=== PATIENT | female | born 1990 | race Caucasian/White ===

== ENCOUNTER 2016-02-27 08:43 | Emergency (ER) | payer MEDICAID, OTHER ==
[~2016-02-27] VITALS: Ht 154.9 cm; Wt 50.0 kg
[~2016-02-27 08:43] MED LIST: AUGM875T PO; TYLE3 PO
[2016-02-27 08:57] VITALS: BP 91/56; PULSE 100; RESP 20; TEMP 98.6; O2SAT 98
[2016-02-27 11:17] VITALS: BP 90/53; PULSE 83; RESP 16; O2SAT 95
--- NOTE | 2016-02-27 11:26 | PD ---
HPI Chief Complaint: Cold / Flu Symptoms Time Seen by Provider: 11:10 Travel History International Travel<30 days: No Contact w/Intl Traveler<30days: No Traveled to known affect area: No History of Present Illness HPI The patient was seen and examined in the presence of the nurse. She's had some nausea vomiting diarrhea for 3 days. Those symptoms have improved. She is not had any vomiting today. She has generalized weakness and malaise. Her chief complaint is sore throat. No documented fever. No alleviating factors. Symptoms severity is moderate PFSH Past Medical History Asthma: Yes Diminished Hearing: No Immunizations Current: No ?: Not : 4 Para: 4 Tubal Ligation: Yes Social History Alcohol Use: Yes (OCC) Tobacco Use: No Substance Use: No Allergies-Medications (Allergen,Severity, Reaction): Coded Allergies: No Known Allergies (Verified , 12/13/15) Reported Meds & Prescriptions Reported Meds & Active Scripts Active No Active Prescriptions or Reported Medications Review of Systems General / Constitutional: No: Fever Eyes: No: Visual changes HENT: Positive: Sore Throat, No: Headaches Cardiovascular: No: Chest Pain or Discomfort Respiratory: No: Shortness of Breath Gastrointestinal: Positive: Nausea, Vomiting, Diarrhea, No: Abdominal Pain Genitourinary: No: Dysuria Musculoskeletal: Positive: Weakness, No: Pain Skin: No Rash Neurologic: Positive: Weakness Psychiatric: No: Depression Endocrine: No: Polydipsia Hematologic/Lymphatic: No: Easy Bruising Physical Exam Narrative GENERAL: Well-nourished, well-developed patient in no apparent distress. SKIN: Warm and dry. HEAD: Atraumatic. Normocephalic. EYES: Pupils equal and round. No scleral icterus. No injection or drainage. ENT: No nasal bleeding or discharge. Mucous membranes pink and moist. Throat shows erythema without exudate, uvula midline without swelling NECK: Trachea midline. No JVD. No meningeal signs CARDIOVASCULAR: Regular rate and rhythm. No murmur appreciated. RESPIRATORY: No accessory muscle use. Clear to auscultation. Breath sounds equal bilaterally. GASTROINTESTINAL: Abdomen soft, non-tender, nondistended. Hepatic and splenic margins not palpable. MUSCULOSKELETAL: No obvious deformities. No clubbing. No cyanosis. No edema. NEUROLOGICAL: Awake and alert. No obvious cranial nerve deficits. Motor grossly within normal limits. Normal speech. PSYCHIATRIC: Appropriate mood and affect; insight and judgment normal. Data Data Last Documented VS Vital Signs Date Time Temp Pulse Resp B/P Pulse Ox O2 Delivery O2 Flow Rate FiO2 02/27/16 13:39 78 15 96/57 96 Room Air 02/27/16 08:57 98.6 Orders Iv Access Insert/Monitor (02/27/16 11:20) Complete Blood Count With Diff (02/27/16 11:20) Basic Metabolic Panel (Bmp) (02/27/16 11:20) Beta Hcg (Quant/Titer) (02/27/16 11:20) Sodium Chlor 0.9% 1000 Ml Inj (Ns 1000 M (02/27/16 11:30) Group A Rapid Strep Screen (02/27/16 11:20) Labs Laboratory Tests Test 02/27/16 11:20 White Blood Count 13.7 TH/MM3 Red Blood Count 4.03 MIL/MM3 Hemoglobin 11.0 GM/DL Hematocrit 33.5 % Mean Corpuscular Volume 83.0 FL Mean Corpuscular Hemoglobin 27.4 PG Mean Corpuscular Hemoglobin 32.9 % Concent Red Cell Distribution Width 14.3 % Platelet Count 239 TH/MM3 Mean Platelet Volume 7.7 FL Neutrophils (%) (Auto) 86.2 % Lymphocytes (%) (Auto) 7.3 % Monocytes (%) (Auto) 6.4 % Eosinophils (%) (Auto) 0.0 % Basophils (%) (Auto) 0.1 % Neutrophils # (Auto) 11.8 TH/MM3 Lymphocytes # (Auto) 1.0 TH/MM3 Monocytes # (Auto) 0.9 TH/MM3 Eosinophils # (Auto) 0.0 TH/MM3 Basophils # (Auto) 0.0 TH/MM3 CBC Comment DIFF FINAL Differential Comment Sodium Level 139 MEQ/L Potassium Level 3.5 MEQ/L Chloride Level 106 MEQ/L Carbon Dioxide Level 27.1 MEQ/L Anion Gap 6 MEQ/L Blood Urea Nitrogen 5 MG/DL Creatinine 0.71 MG/DL Estimat Glomerular Filtration 100 ML/MIN Rate Random Glucose 88 MG/DL Calcium Level 8.4 MG/DL Human Chorionic Gonadotropin, LESS THAN 1 Quant MIU/ML MDM Medical Decision Making Medical Screen Exam Complete: Yes Emergency Medical Condition: Yes Medical Record Reviewed: Yes Differential Diagnosis Dehydration, gastroenteritis, pharyngitis Narrative Course I have reviewed the patient's electronic medical record. Patient does not look septic or toxic but does have a blood pressure of 90/50. She is a young thin female so this may be baseline I reviewed her prior vital signs from prior visits and her blood pressures have run anywhere from low 90s up to 108 systolic IV placed I gave her 1 L normal saline IV CBC is normal Metabolic profile is normal Beta hCG is negative Rapid strep screen is positive Patient has strep pharyngitis she has a low baseline blood pressure but I've given her liter of saline and she is well-hydrated at this time Penicillin VK prescribed Diagnosis Primary Impression: Pharyngitis due to group A beta hemolytic Streptococci Additional Impression: Vomiting and diarrhea Additional Instructions: The patient was advised to follow up with their physician and return if they worsen. Med/Other Pt SpecificInfo: Prescription(s) given Scripts Penicillin V Potassium 500 Mg [id number] Mg PO Q6H #28 TAB Ref 0 Prov:Gumaro Ramírez MD 02/27/16 Disposition: 01 DISCHARGE HOME Condition: Stable Gumaro Ramírez MD Feb 27, 2016 11:26
[2016-02-27] MEDS ORDERED: SODIUM CHLOR 0.9% 1000 ML INJ 1,000 ML IV ONE (11:30)
[2016-02-27 11:36] LABS: AUTOMATED NEUTROPHIL # 11.8 TH/MM3 (1.8-7.7); BASOPHIL % 0.1 % (0.0-2.0); HEMATOCRIT 33.5 % (35.0-46.0); HEMO FLAGS DIFF FINAL; LYMPH % 7.3 % (9.0-44.0); MEAN CORPUSCULAR HEMOGLOBIN 27.4 PG (27.0-34.0); MEAN CORPUSCULAR HGB CONC 32.9 % (32.0-36.0); MONO % 6.4 % (0.0-8.0); NEUT % 86.2 % (16.0-70.0); PLATELET COUNT 239 TH/MM3 (150-450); RED BLOOD COUNT 4.03 MIL/MM3 (4.00-5.30); RED CELL DISTRIBUTION WIDTH 14.3 % (11.6-17.2); WHITE BLOOD COUNT 13.7 TH/MM3 (4.0-11.0)
[2016-02-27 11:50] LABS: ANION GAP 6 MEQ/L (5-15); BICARBONATE 27.1 MEQ/L (21.0-32.0); BLOOD UREA NITROGEN 5 MG/DL (7-18); CHLORIDE 106 MEQ/L (98-107); GLOMERULAR FILTRATION RATE 100 ML/MIN (>89); POTASSIUM 3.5 MEQ/L (3.5-5.1); SODIUM (NA) 139 MEQ/L (136-145)
[2016-02-27 11:54] LABS: BETA HCG QUANT LESS THAN 1 MIU/ML (0-5)
[2016-02-27 13:39] VITALS: BP 96/57; PULSE 78; RESP 15; O2SAT 96
[2016-02-27] MEDS ORDERED: PENI500T PO (13:48)
== END 2016-02-27 14:11 | disposition home or self-care (01) ==
LOC: NEPC 08:43
DX: J02.0 Streptococcal pharyngitis (principal); B95.0 Streptococcus, group A, as the cause of diseases classified elsewhere; R11.2 Nausea with vomiting, unspecified; R19.7 Diarrhea, unspecified
CPT/HCPCS: 80048; 84702; 85025; 87880; 96360; 99284; J7030

== ENCOUNTER 2016-06-23 13:41 | Emergency (ER) | payer MEDICAID ==
[~2016-06-23] VITALS: Ht 157.5 cm; Wt 49.3 kg
[~2016-06-23 13:41] MED LIST changes: -AUGM875T PO; +PENI500T PO; -TYLE3 PO
[2016-06-23 13:50] VITALS: BP 104/47; PULSE 89; RESP 15; TEMP 98.6; O2SAT 98
[2016-06-23] MEDS ORDERED: DICL75TA PO (15:11)
[2016-06-23] MEDS ORDERED: MAGICADU2 SWISH-SWAL (15:11)
[2016-06-23] MEDS ORDERED: PENI250T59 PO (15:11)
--- NOTE | 2016-06-23 15:15 | PD ---
HPI Chief Complaint: Oral / Dental Pain or Problem Time Seen by Provider: 15:12 Travel History International Travel<30 days: No Contact w/Intl Traveler<30days: No Traveled to known affect area: No History of Present Illness HPI 26-year-old female that presents to the ED for evaluation of right-sided jaw swelling and pain. Per patient she's had this for a couple days. Per patient the swelling started today. Per patient she does have bad dentition. She denies any fevers chills or sweats. Per patient the pain 6 out of 10. Denies any other symptom. She has not seen a dentist for this. No significant anybody for this. No allergies to medication. PFSH Past Medical History Medical History: Denies Significant Hx Asthma: Yes Diminished Hearing: No Immunizations Current: Yes Tetanus Vaccination: > 5 Years Influenza Vaccination: No ?: Not LMP: 3 WEEKS. : 4 Para: 4 Tubal Ligation: Yes Social History Alcohol Use: Yes (OCC) Tobacco Use: No Substance Use: No Allergies-Medications (Allergen,Severity, Reaction): Coded Allergies: No Known Allergies (Verified , 06/23/16) Reported Meds & Prescriptions Reported Meds & Active Scripts Active Magic Mouthwash Adult Liq (Multi-Ingredient Mouthwash/Gargle) 120 Ml Susp 5 Ml SWISH-SWAL ACHS Each 5 mL contains: Nystatin 200,000 units, Diphenhydramine 4.25 mg, Viscous Lidocaine 10 mg, Gilliam syrup 0.[address] (Diclofenac Sodium) 75 Mg Tabdr 75 Mg PO BID PRN Penicillin Vk (Penicillin V Potassium) 250 Mg Tab 250 Mg PO Q6H 14 Days Review of Systems Except as stated in HPI: all other systems reviewed are Neg Physical Exam Narrative GENERAL: SKIN: Warm and dry. HEAD: Atraumatic. Normocephalic. EYES: Pupils equal and round. No scleral icterus. No injection or drainage. ENT: No nasal bleeding or discharge. Mucous membranes pink and moist. Tongue is midline. No blood deviation. Dental: Patient has bad dentition not especially on the right upper and right lower jaw. Patient does have some soft tissue swelling noted on the gum of the right tooth #5 which does have a cavity in it. Tenderness to palpation in this area. Soft tissue swelling on the right cheek. NECK: Trachea midline. No JVD. CARDIOVASCULAR: Regular rate and rhythm. RESPIRATORY: No accessory muscle use. Clear to auscultation. Breath sounds equal bilaterally. GASTROINTESTINAL: Abdomen soft, non-tender, nondistended. Hepatic and splenic margins not palpable. MUSCULOSKELETAL: Extremities without clubbing, cyanosis, or edema. No obvious deformities. NEUROLOGICAL: Awake and alert. No obvious cranial nerve deficits. Motor grossly within normal limits. Five out of 5 muscle strength in the arms and legs. Normal speech. PSYCHIATRIC: Appropriate mood and affect; insight and judgment normal. Data Data Last Documented VS Vital Signs Date Time Temp Pulse Resp B/P Pulse Ox O2 Delivery O2 Flow Rate FiO2 06/23/16 13:50 98.6 89 15 104/47 98 MDM Medical Decision Making Medical Screen Exam Complete: Yes Emergency Medical Condition: Yes Medical Record Reviewed: Yes Differential Diagnosis Dental infection versus dentalgia versus dental abscess Narrative Course 26-year-old female that presents to the ED for evaluation of right-sided swelling. Patient was properly examined and was found to have signs and symptoms consistent with dental infection. Patient will be treated for this with penicillin VK, diclofenac sodium, Magic mouthwash. Told to apply ice or warm compresses. Given dental referral. See ED if worsening symptoms. Diagnosis Primary Impression: Dental infection Patient Instructions: General Instructions Additional Instructions: Take medications as prescribed. Follow-up with dentist See ED for any worsening symptoms. Apply ice t as needed for pain Med/Other Pt SpecificInfo: Prescription(s) given Scripts Yvbewbni-Ybpimzwwsdiaaaq-Njlyirlgb Liq (Magic Mouthwash Adult Liq)120 Ml Susp5 Ml SWISH-SWAL ACHS #120 ML Each 5 mL contains: Nystatin 200,000 units, Diphenhydramine 4.25 mg, Viscous Lidocaine 10 mg, Gilliam syrup 0.8 mL Prov:Suleiman Sweeney MD 06/23/[address] 75 Mg Tabdr75 Mg PO BID PRN (PAIN SCALE 1 TO 10) #20 TAB Prov:Suleiman Sweeney MD 06/23/16 Penicillin V Potassium (Penicillin Vk)250 Mg [id number] Mg PO Q6H 14 Days Prov:Suleiman Sweeney MD 06/23/16 Disposition: 01 DISCHARGE HOME Condition: Stable Kirill Kilpatrick Jun 23, 2016 15:15
== END 2016-06-23 15:33 | disposition home or self-care (01) ==
LOC: PHED 13:41 → PHEFT 15:33
DX: K04.7 Periapical abscess without sinus (principal); K02.9 Dental caries, unspecified
CPT/HCPCS: 99282

== ENCOUNTER 2016-12-04 17:09 | Emergency (ER) | payer MEDICAID ==
[~2016-12-04] VITALS: Ht 154.9 cm; Wt 50.0 kg
[~2016-12-04 17:09] MED LIST changes: +DICL75TA PO; +MAGICADU2 SWISH-SWAL; +PENI250T59 PO; -PENI500T PO
[2016-12-04 17:31] VITALS: BP 90/53; PULSE 86; RESP 16; TEMP 98; O2SAT 97
[2016-12-04 17:52] LABS: AUTOMATED NEUTROPHIL # 5.5 TH/MM3 (1.8-7.7); BASOPHIL % 0.3 % (0.0-2.0); EOSINOPHIL # 0.1 TH/MM3 (0-0.4); EOSINOPHIL % 1.2 % (0.0-4.0); HEMO FLAGS DIFF FINAL; LYMPH % 18.7 % (9.0-44.0); LYMPHOCYTE # 1.4 TH/MM3 (1.0-4.8); MEAN CELL VOLUME 86.2 FL (80.0-100.0); MEAN CORPUSCULAR HEMOGLOBIN 28.1 PG (27.0-34.0); MEAN CORPUSCULAR HGB CONC 32.6 % (32.0-36.0); MONO % 6.9 % (0.0-8.0); NEUT % 72.9 % (16.0-70.0); PLATELET COUNT 256 TH/MM3 (150-450); RED BLOOD COUNT 3.94 MIL/MM3 (4.00-5.30); RED CELL DISTRIBUTION WIDTH 14.1 % (11.6-17.2); WHITE BLOOD COUNT 7.6 TH/MM3 (4.0-11.0)
[2016-12-04 18:09] LABS: ANION GAP 7 MEQ/L (5-15); AST (GOT) 16 U/L (15-37); BLOOD UREA NITROGEN 8 MG/DL (7-18); CHLORIDE 105 MEQ/L (98-107); GLOMERULAR FILTRATION RATE 126 ML/MIN (>89); POTASSIUM 3.6 MEQ/L (3.5-5.1); SODIUM (NA) 138 MEQ/L (136-145)
[2016-12-04 18:14] LABS: ALKALINE PHOSPHATASE 94 U/L (45-117); ALT (GPT) 21 U/L (10-53); TOTAL BILIRUBIN ADULT 0.3 MG/DL (0.2-1.0)
[2016-12-04 18:37] LABS: BLOOD, URINE NEG (NEG); COMMENT (UR) CULT NOT INDICATED; CULTURE IF INDICATED CULT NOT INDICATED; GLUCOSE,URINE NEG (NEG); KETONE, URINE NEG (NEG); MUCUS URINE FEW /lpf (OCC); NITRITE,URINE NEG (NEG); SQUAMOUS EPITHELIAL CELL URINE 16 /hpf (0-5); URINE COLOR YELLOW (YELLW/STRAW)
[2016-12-04 18:54] VITALS: BP 92/53; PULSE 57; RESP 14; O2SAT 100
--- NOTE | 2016-12-04 19:17 | PD ---
HPI Chief Complaint: Abdominal Pain Time Seen by Provider: 19:12 Travel History International Travel<30 days: No Contact w/Intl Traveler<30days: No Traveled to known affect area: No History of Present Illness HPI 26-year-old female presents to the ED for evaluation of 4 hour history of sudden onset 8/10 lower abdominal pain. Described as "so bad and couldn't move. " Reported as 3/10 on my evaluation. She endorses accompanying nausea with one episode of NBNB vomiting. Patient endorses "normal" bowel movement this morning. Denies melena or hematochezia. She endorses right-sided back pain. No alleviating or exacerbating factors reported. She denies dysuria, risk of . She states her last menstrual period was "the end of last month." She endorses pale vaginal discharge but states this is her normal. No treatment attempt at home. PFSH Past Medical History Asthma: Yes Diminished Hearing: No Immunizations Current: Yes Tetanus Vaccination: < 5 Years ?: Not : 4 Para: 4 Tubal Ligation: Yes Social History Alcohol Use: Yes (OCC) Tobacco Use: No Substance Use: No Allergies-Medications (Allergen,Severity, Reaction): Coded Allergies: No Known Allergies (Verified , 12/04/16) Reported Meds & Prescriptions Reported Meds & Active Scripts Active No Active Prescriptions or Reported Medications Review of Systems Except as stated in HPI: all other systems reviewed are Neg Physical Exam Narrative GENERAL: Well-nourished, well-developed petite white female in no acute distress. SKIN: Focused skin assessment warm/dry. HEAD: Normocephalic. EYES: No scleral icterus. No injection or drainage. NECK: Supple, trachea midline. No JVD or lymphadenopathy. CARDIOVASCULAR: Regular rate and rhythm without murmurs, gallops, or rubs. RESPIRATORY: Breath sounds clear and equal bilaterally. No accessory muscle use. GASTROINTESTINAL: Abdomen soft, non-tender, nondistended. No suprapubic tenderness. No palpable masses. Active bowel sounds. GENITOURINARY: Normal external genitalia without lesions or erythema. Vaginal vault copious creamy white drainage. Cervical os was closed copious creamy white drainage. No cervical motion tenderness. Uterus nontender and nonenlarged. Bilateral adnexa nontender without masses. MUSCULOSKELETAL: No cyanosis, or edema. BACK: Nontender without obvious deformity. + Right sided CVA tenderness. Data Data Last Documented VS Vital Signs Date Time Temp Pulse Resp B/P (MAP) Pulse Ox O2 Delivery O2 Flow Rate FiO2 12/04/16 18:54 57 14 92/53 (66) 100 Room Air 12/04/16 17:31 98.0 Orders Orders Complete Blood Count With Diff (12/04/16 17:35) Comprehensive Metabolic Panel (12/04/16 17:35) Urinalysis - C+S If Indicated (12/04/16 17:35) Ed Urine Pregnancytest Poc (12/04/16 17:35) Iv Access Insert/Monitor (12/04/16 17:35) Lipase (12/04/16 17:35) Wet Prep Profile (12/04/16 19:13) Gc And Chlamydia Pcr (12/04/16 19:13) Azithromycin Powd Pack (Zithromax Powd P (12/04/16 20:00) Ceftriaxone Inj (Rocephin Inj) (12/04/16 20:00) Lidocaine 1% Inj (50 Ml) (Xylocaine 1% I (12/04/16 20:00) Us Pelvis Comp W Doppler (12/04/16 ) Ed Discharge Order (12/04/16 22:32) Labs Laboratory Tests Test 12/04/16 17:30 12/04/16 18:00 12/04/16 20:00 White Blood Count 7.6 TH/MM3 Red Blood Count 3.94 MIL/MM3 Hemoglobin 11.1 GM/DL Hematocrit 34.0 % Mean Corpuscular Volume 86.2 FL Mean Corpuscular Hemoglobin 28.1 PG Mean Corpuscular Hemoglobin Concent 32.6 % Red Cell Distribution Width 14.1 % Platelet Count 256 TH/MM3 Mean Platelet Volume 7.5 FL Neutrophils (%) (Auto) 72.9 % Lymphocytes (%) (Auto) 18.7 % Monocytes (%) (Auto) 6.9 % Eosinophils (%) (Auto) 1.2 % Basophils (%) (Auto) 0.3 % Neutrophils # (Auto) 5.5 TH/MM3 Lymphocytes # (Auto) 1.4 TH/MM3 Monocytes # (Auto) 0.5 TH/MM3 Eosinophils # (Auto) 0.1 TH/MM3 Basophils # (Auto) 0.0 TH/MM3 CBC Comment DIFF FINAL Differential Comment Blood Urea Nitrogen 8 MG/DL Creatinine 0.58 MG/DL Random Glucose 84 MG/DL Total Protein 7.7 GM/DL Albumin 3.7 GM/DL Calcium Level 8.3 MG/DL Alkaline Phosphatase 94 U/L Aspartate Amino Transf (AST/SGOT) 16 U/L Alanine Aminotransferase (ALT/SGPT) 21 U/L Total Bilirubin 0.3 MG/DL Sodium Level 138 MEQ/L Potassium Level 3.6 MEQ/L Chloride Level 105 MEQ/L Carbon Dioxide Level 26.0 MEQ/L Anion Gap 7 MEQ/L Estimat Glomerular Filtration Rate 126 ML/MIN Lipase 248 U/L Urine Color YELLOW Urine Turbidity HAZY Urine pH 8.0 Urine Specific [place] 1.020 Urine Protein TRACE mg/dL Urine Glucose (UA) NEG mg/dL Urine Ketones NEG mg/dL Urine Occult Blood NEG Urine Nitrite NEG Urine Bilirubin NEG Urine Urobilinogen LESS THAN 2.0 MG/DL Urine Leukocyte Esterase SMALL Urine RBC 1 /hpf Urine WBC 4 /hpf Urine Squamous Epithelial Cells 16 /hpf Urine Amorphous Sediment RARE Urine Mucus FEW /lpf Microscopic Urinalysis Comment CULT NOT INDICATED Clue Cells (Wet Prep) NONE SEEN Vaginal Trichomonas (Wet Prep) NONE SEEN Vaginal Yeast (Wet Prep) NONE SEEN MDM Medical Decision Making Medical Screen Exam Complete: Yes Emergency Medical Condition: Yes Differential Diagnosis versus cystitis versus pyelonephritis versus STI versus ovarian torsion versus ovarian cyst versus other Narrative Course 26-year-old female presents to the ED via EMS for evaluation of 4 hour history of sudden onset 8/10 lower abdominal pain. Described as "so bad she couldn't move." Reported as 3/10 on my evaluation. She endorses accompanying nausea with one episode of NBNB vomiting. Patient endorses "normal" bowel movement this morning. Denies melena or hematochezia. She endorses right-sided back pain. No alleviating or exacerbating factors reported. She denies dysuria, risk of . She states her last menstrual period was "the end of last month." She endorses pale vaginal discharge. She endorses unprotected sex. Vitals reviewed. Physical exam reveals a well-appearing white female in no acute distress. Chest CTAB. Abdomen soft, nontender. No suprapubic tenderness. Positive right-sided CVA tenderness. Pelvic exam reveals thick white discharge in the vaginal vault and emanating from the cervical os. No cervical motion or adnexal tenderness. Patient agrees to empiric treatment for GC and chlamydia. ED urine test negative. No concerning abnormalities on CBC, CMP, UA. Wet prep negative. GC, chlamydia pending. Pelvic US reveals right ovarian cyst. Patient is instructed to return to normal , gentle activities as tolerated, follow-up with her planisher. She was made aware of the pending GC and chlamydia results. She indicated understanding of the discharge instructions. She is stable and discharged home. Diagnosis Primary Impression: Lower abdominal pain Additional Impressions: Vaginal discharge Ovarian cyst Qualified Codes: N83.201 - Unspecified ovarian cyst, right side Referrals: Psychosocial Rehabilitation Counselor Patient Instructions: General Instructions, Ovarian Cyst (ED), Vaginal Discharge (ED) Additional Instructions: Rest, hydrate. Return to normal, to collect these as tolerated. The gonorrhea and chlamydia testing result will not be back for 2 days. You can expect a letter or phone call if you test is positive. Abstain from sex until the results are called back. You need to have a test of cure at the health department before resuming sexual activity. Barrier methods are best! Use a condom with all sexual partners. Follow-up with a planisher or the [facility]. Return to ED for any urgent or emergent medical condition. Scripts No Active Prescriptions or Reported Meds Disposition: 01 DISCHARGE HOME Condition: Beulah King Dec 04, 2016 19:17
[2016-12-04] MEDS ORDERED: AZITHROMYCIN PWD FOR SUSP 1 GM PACKET PO ONE (20:00)
[2016-12-04] MEDS ORDERED: cefTRIAXone 250 MG VIAL IM ONE (20:00)
[2016-12-04] MEDS ORDERED: LIDOCAINE HCL 1% 50 ML VIAL IM ONE (20:00)
--- NOTE | 2016-12-04 22:27 | RADRPT ---
EXAM DATE/TIME: 12/04/2016 21:58 [facility] COMPARISON: No previous studies available for comparison. INDICATIONS : Pelvic pain. MEDICAL HISTORY : Asthma. SURGICAL HISTORY : Tubal ligation. ENCOUNTER: Initial ACUITY: 2 days PAIN SCORE: 6/10 LOCATION: Bilateral pelvis MEASUREMENTS: UTERUS: 10.7 x 5.8 x 4.3 cm ENDOMETRIAL STRIPE: 12 mm RIGHT OVARY: 3.7 x 2.0 x 1.9 cm LEFT OVARY: 2.8 x 2.3 x 1.6 cm FINDINGS: UTERUS: The myometrium has homogeneous echotexture without mass.The endometrial cavity is empty. RIGHT OVARY: There is a cyst associated with the right ovary measuring 2.5 cm. There is flow to the right ovary. LEFT OVARY: Ovary contains no mass or significant cystic lesion. There is flow to the left ovary. MISCELLANEOUS: No free fluid. CONCLUSION: 1. There is a right ovarian cyst measuring 2.5 cm. 2. Otherwise, unremarkable exam. Logan Ruano MD on December 04, 2016 at 22:25 Board Certified Radiologist. This report was verified electronically.
[2016-12-04 23:01] VITALS: BP 98/54
[2016-12-04 23:05] LABS: CHLAMYDIA PCR DETECTED (NOT DETECT); NEISSERIA PCR NOT DETECTED (NOT DETECT)
== END 2016-12-04 23:02 | disposition home or self-care (01) ==
LOC: NEDAMB 17:09 → NEPC 23:02
DX: N89.8 Other specified noninflammatory disorders of vagina (principal); N83.201 Unspecified ovarian cyst, right side
CPT/HCPCS: 76856; 80053; 81001; 83690; 84703; 85025; 87210; 87491; 87591; 93975; 96372; 99284; J0696